=== PATIENT | female | born 1980 | race Caucasian/White ===

== ENCOUNTER 2019-03-12 11:36 | Emergency (ER) | payer MEDICAID, OTHER ==
[~2019-03-12] VITALS: Ht 154.9 cm; Wt 61.5 kg
[~2019-03-12 11:36] MED LIST: OMEP40CA6 PO
[2019-03-12 11:39] VITALS: Ht 154.9 cm; Wt 61.5 kg
[2019-03-12] MEDS ORDERED: ONDANSETRON 4 MG INJ IV STA (15:08)
--- NOTE | 2019-03-12 15:13 | ERD ---
ER Documentation Chief Complaint Chief Complaint PT FAINTED YESTERDAY; HIT HER HEAD; KO; BEEN VOMITTING, HAVING HEADACHES HPI This is a 38-year-old female patient who presents emergency room with multiple complaints. Patient states that she has had 3 fainting episodes in 1 month that begins with pain in the stomach that become so severe that she has a syncopal event. 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 Denies episodes of being unconscious. Denies CP, no SOB. States that she vomited 2 times yesterday but denies any hematemesis. Also denies dysuria or hematuria. Denies melena or hematochezia. Denies chest pain or shortness of breath. States that her epigastric pain is not relating to eating rather related to feeling like her "stomach is blowing up" patient states that she can eat and drink normally without abdominal pain. Patient is alert and cooperative at time of evaluation, NAD. ROS All systems reviewed and are negative except as per history of present illness. Medications Home Meds Active Scripts Omeprazole* (Omeprazole*) 40 Mg Capsule., 40 MG PO DAILY for 30 Days, #30 CAP Prov:ARUNA PATHAK NP 03/12/19 Allergies Allergies: Coded Allergies: No Known Allergy (Unverified , 03/12/19) PMhx/Soc Medical and Surgical Hx: pt denies Medical Hx, pt denies Surgical Hx History of Surgery: Yes (Tubal Ligation 2013) Hx Alcohol Use: No Hx Substance Use: No Hx Tobacco Use: No Smoking Status: Never smoker FmHx Family History: No diabetes, No coronary disease, No other Physical Exam Vitals Vital Signs Date Temp Pulse Resp B/P (MAP) Pulse Ox O2 O2 Flow FiO2 Time Delivery Rate 03/12/19 98.7 77 18 139/74 Room Air 20:04 (95) 03/12/19 98.5 73 20 141/95 99 11:39 (110) Physical Exam Const: No acute distress Head: Atraumatic Eyes: Normal Conjunctiva, PERRL ENT: Normal External Ears, Nose and Mouth. Pharynx pink, moist, no lesions, no exudate, no petechiae Neck: Full range of motion. No meningismus. No lymphadenopathy Resp: Clear to auscultation bilaterally, equal chest rise, no wheezing, no rales, no rhonchi Cardio: Regular rate and rhythm, no murmurs Abd: Soft, tender at epigastrium, non distended. Normal bowel sounds Skin: No petechiae or rashes Back: No midline or flank tenderness, no CVT Ext: No cyanosis, or edema Neur: Awake and alert, CN II-XII intact, clear speech, steady gait. Psych: Normal Mood and Affect Result Diagram: 03/12/19 1525 03/12/19 1525 Results 24 hrs Laboratory Tests Test 03/12/19 15:25 03/12/19 15:26 03/12/19 15:37 White Blood Count 6.4 10^3/ul Red Blood Count 4.49 10^6/ul Hemoglobin 13.1 g/dl Hematocrit 39.1 % Mean Corpuscular Volume 87.1 fl Mean Corpuscular Hemoglobin 29.2 pg Mean Corpuscular 33.5 g/dl Hemoglobin Concent Red Cell Distribution Width 12.4 % Platelet Count 372 10^3/UL Mean Platelet Volume 8.3 fl Immature Granulocytes % 0.200 % Neutrophils % 55.4 % Lymphocytes % 34.2 % Monocytes % 7.8 % Eosinophils % 1.9 % Basophils % 0.5 % Nucleated Red Blood Cells % 0.0 /100WBC Immature Granulocytes # 0.010 10^3/ul Neutrophils # 3.6 10^3/ul Lymphocytes # 2.2 10^3/ul Monocytes # 0.5 10^3/ul Eosinophils # 0.1 10^3/ul Basophils # 0.0 10^3/ul Nucleated Red Blood Cells # 0.0 10^3/ul Sodium Level 142 mmol/L Potassium Level 3.5 mmol/L Chloride Level 104 mmol/L Carbon Dioxide Level 28 mmol/L Anion Gap 10 Blood Urea Nitrogen 9 mg/dl Creatinine 0.64 mg/dl Est Glomerular Filtrat > 60 mL/min Rate mL/min Glucose Level 98 mg/dl Calcium Level 9.8 mg/dl Total Bilirubin 0.3 mg/dl Direct Bilirubin 0.00 mg/dl Indirect Bilirubin 0.3 mg/dl Aspartate Amino Transf (AST/SGOT) 277 IU/L Alanine 393 IU/L Aminotransferase (ALT/SGPT) Alkaline Phosphatase 103 IU/L Total Protein 9.2 g/dl Albumin 5.0 g/dl Globulin 4.20 g/dl Albumin/Globulin Ratio 1.19 Lipase 81 U/L Urine Color STRAW Urine Clarity CLEAR Urine pH 6.0 Urine Specific [place] 1.008 Urine Ketones NEGATIVE mg/dL Urine Nitrite NEGATIVE mg/dL Urine Bilirubin NEGATIVE mg/dL Urine Urobilinogen NEGATIVE mg/dL Urine Leukocyte Esterase NEGATIVE Estelita/ul Urine Hemoglobin NEGATIVE mg/dL Urine Glucose NEGATIVE mg/dL Urine Total Protein NEGATIVE mg/dl POC Beta HCG, Qualitative NEGATIVE Current Medications Medications Dose Sig/[place]ie Start Time Status Last (Trade) Ordered Route PRN Stop Time Admin Dose Reason Admin Ondansetron 4 mg ONCE STAT 03/12/19 DC 03/12/19 HCl (Zofran IV 15:08 03/12/19 15:47 Inj) 15:14 IV Flush 10 ml STK-MED 03/12/19 DC (NS 10 ml) ONCE .ROUTE 15:58 03/12/19 15:59 Sodium 100 ml @ ud STK-MED 03/12/19 DC Chloride ONCE .ROUTE 15:58 03/12/19 15:59 Iohexol 150 ml STK-MED 03/12/19 DC (Omnipaque ONCE .ROUTE 15:59 03/12/19 300mg/ ml) 16:00 40 ml ONCE ONCE 03/12/19 DC 03/12/19 Miscellaneous PO 17:30 03/12/19 17:51 Medication 17:33 (Gi Cocktail (2)) 40 mg ONCE ONCE 03/12/19 DC Pantoprazole IV 17:30 03/12/19 (Protonix 17:56 Iv) Famotidine 20 mg ONCE ONCE 03/12/19 DC 03/12/19 (Pepcid) PO 18:00 03/12/19 17:58 18:01 Procedures/MDM PROCEDURES/MDM EKG: Read by Dr. Alfaro, attending physician. EKG shows normal sinus rhythm at a rate of 60 bpm. No arrhythmias, acute ST elevations or T wave changes were noted. DIAGNOSTIC IMAGING: Read by radiologist. CT of abdomen and pelvis negative for mass, lymphadenopathy, acute inflammatory process, obstruction, diverticulitis. Ultrasound negative for choledocholithiasis, Asya cystitis although there is evidence of gallstones. LAB INTERPRETATION: No leukocytosis, no anemia, no electrolyte disturbance, normal kidney function, no hyper or hypoglycemia, no elevated lipase, + transaminitis without elevated bilirubin. Urinalysis negative for leukocyte esterase or nitrites. No hematuria. -Medications: Zofran, Pepcid, GI cocktail Patient tolerated medication well with no adverse reactions. Patient reported improvement in pain. -Consultation: Dr. Reza MDM: This 38 yo patient presents with multiple complaints including stomach pain, vomiting, with near syncopal episode yesterday due to stomach pain. Describes headache pain as mild without any neurological deficits. The patient is clinically well appearing and stable. Symptoms are not suggestive of cardiac ischemia, pulmonary embolus, aortic dissection, or other serious etiology. The patient presents with abdominal pain without definite explanation found on evaluation today. However, there are no signs of peritonitis or other life- threatening or serious etiology. Patient reported improvement in epigastric pain with GI Cocktail. Patient instructed to follow-up with her PMD for referral to GI. The patient appears stable for discharge and has been instructed to return immediately if the symptoms worsen in any way. DISPOSITION and PLAN: RX: Omeprazole The patient has been discharge home to follow-up with community physician. Departure Diagnosis: Primary Impression: Dyspepsia Condition: Stable ARUNA PATHAK NP Mar 12, 2019 15:13
[2019-03-12] MEDS ORDERED: SOD CHLORIDE 0.9% 100 ML ONE (15:58)
[2019-03-12] MEDS ORDERED: IOHEXOL 300MG/ML 150 ML BTL ONE (15:59)
[2019-03-12] MEDS ORDERED: LIDOCAINE/MYLANTA 40 ML BTL PO ONE (17:30)
[2019-03-12] MEDS ORDERED: PANTOPRAZOLE 40 MG INJ IV ONE (17:30)
[2019-03-12] MEDS ORDERED: FAMOTIDINE 20 MG TAB PO ONE (18:00)
[2019-03-12 20:04] VITALS: BP 139/74; PULSE 77; RESP 18
== END 2019-03-12 20:07 | disposition home or self-care (01) ==
LOC: FTE 11:36
DX: R10.13 Epigastric pain (principal); R11.10 Vomiting, unspecified
CPT/HCPCS: 36415; 74177; 76705; 80053; 81003; 81025; 83690; 85025; 93005; 96374; C9113; J2405; Q9967; Z7502; Z7610